=== PATIENT | female | born 1975 | race Caucasian/White ===

== ENCOUNTER → 2018-08-23 14:17 | Outpatient (CLI) | payer BC ==
[2013-09-03 16:06] VITALS: BMI 41.4
[~2018-08-23 14:17] MED LIST: AMBIEN10 MG PO; CELEXA10 MG PO; DEMEROL50 MG PO; IBUPROFEN400 MG PO; IBUPROFEN600 MG PO; MAXALT10 MG PO; MOTRIN600 MG PEG; PERCOCET 5-3251 TAB PO; ZOFRAN4 MG PO
--- NOTE | 2018-08-30 13:33 | EC ---
PATIENT:NITO STARR DATE OF SERVICE: 08/23/18 SEX: F MEDICAL RECORD: [id number] DATE OF : [birth year] LOCATION:[facility] AGE OF PATIENT: 43 ADMISSION DATE: 08/23/18 REFERRING PHYSICIAN: INTERPRETING PHYSICIAN: TERENCE SALDIVAR MD ECHOCARDIOGRAM REPORT ECHO CHARGES 4 ECHO COMPLETE Date: 08/23/18 CLINICAL DIAGNOSIS: HYPOTENSION/BRADYCARDIA/WALDRON/ ANGINA/MURMUR ECHOCARDIOGRAPHIC MEASUREMENTS (adult normal given) AC root (d.<3.7cm) 2.8 cm LV Septum d (<1.2 cm> 1.1 cm Valve Excursion 1.9 cm LV Septum (systole) 1.4 cm Left Atria (s.<4.0cm> 4.2 cm LVPW d(<1.2cm) 0.8 cm RV (d.<2.3cm) 2.9 cm LVPW (sytole) 1.6 cm LV diastole(<5.6CM) 5.2 cm MV E-F(>70mm/sec) cm LV systole 3.0 cm LVOT Diameter 1.9 cm MV exc.(>10mm) cm Est.ejection fraction (50-75%) % DOPPLER: LVIT cm/sec A 37.0 cm/sec E 86.0 cm/sec LA cm/sec RVSP 28.3 mmHg LVOT 113 cm/sec AOP1/2T m/s Asc. Ao 151 cm/sec RVOT 67.0 cm/sec RA cm/sec PA 101 cm/sec AV Gradient Peak 9.1 mmHg AV Mean 4.2 mmHg AV Area 2.0 cm MV Gradient Peak 3.9 mmHg MV Mean 1.0 mmHg MV Area cm COMMENTS: OP - HC Splitting Machine Operator Helper: 1 HAYLEY VENANCIO Industrial Services Worker: 3 Dr. Pimentel TAPE# PACS Pericardial Effusion N DATE OF SERVICE: Adequate 2D, color flow, spectral Doppler, and M-Mode. No LVH. LV internal dimension is normal. Wall motion is normal. EF is greater than or equal to 55%. Aortic valve is tricuspid. No evidence of stenosis by Doppler interrogation. Left atrium is minimally dilated at 4.2 cm. Mitral valve shows no prolapse. Trace MR. Right-sided chambers grossly normal. Trace TR. TRANSINT:[id number] Voice Confirmation ID: [id number] DOCUMENT ID: [id number] ECHOCARDIOGRAM REPORT [id number] NITO STARR,TERENCE Bernstein MD at 1333 CC: [id number] DICTATION DATE: 08/28/18 1303 LASER SPECIALIST: 08/28/18 1402 DEP CLI 08/23/18 [place] [id number] [place] [id number]
--- NOTE | 2018-09-06 10:38 | ST ---
PATIENT:NITO STARR MEDICAL RECORD: [id number] SEX: F LOCATION:[facility] ORDER #: ADMISSION DATE: 08/23/18 AGE OF PATIENT: 43 REFERRING PHYSICIAN: INTERPRETING PHYSICIAN: BRENDA BROOKS MD DATE OF SERVICE: 08/23/2018 TREADMILL STRESS TEST INDICATION: Chest discomfort. She exercised only 4 minutes 30 seconds, terminated due to overall fatigue and exercise inability. She had no significant chest discomfort. She had shortness of breath and fatigue. OVERALL IMPRESSION: Inadequate stress test due to inability to exercise. Repeat with Lexiscan and Cardiolite imaging. TRANSINT:[id number] Voice Confirmation ID: [id number] DOCUMENT ID: [id number] BRENDA BROOKS MD at 1038 CC: [id number] DICTATION DATE: 08/25/18 1235 DESIGN TECHNOLOGY TEACHER: 08/26/18 0625 DEP CLI 08/23/18 [place] [address] [place] [address]
== END | disposition home or self-care (01) ==
LOC: D.HCCARDIO 14:17
PROVIDERS: ATTEND Internal Medicine Interventional Cardiology
DX: R00.2 Palpitations (principal); R07.9 Chest pain, unspecified

== ENCOUNTER → 2018-09-07 09:56 | Outpatient (CLI) | payer BC ==
[2013-09-03 16:06] VITALS: BMI 41.4
--- NOTE | ~2018-09-07 | ST ---
PATIENT:NITO STARR MEDICAL RECORD: [id number] SEX: F LOCATION:[facility] ORDER #: ADMISSION DATE: 09/07/18 AGE OF PATIENT: 43 REFERRING PHYSICIAN: INTERPRETING PHYSICIAN: BRENDA BROOKS MD DATE OF SERVICE: 09/07/2018 PROCEDURE: Nuclear stress test. INDICATION: Chest pain. She was exercised on standard Lexiscan protocol with 27 mCi of sestamibi injected at peak stress, 8 mCi used previously for rest images. FINDINGS: Gated SPECT reveals preserved ejection fraction at 66% with good wall motion and thickening and brightening throughout all segments. SPECT imaging Cardiolite was used as myocardial fusion agent. There is homogeneous uptake throughout all segments at rest and stress with no evidence of inducible ischemia or previous infarction. OVERALL IMPRESSION: 1. This is a normal nuclear stress test with no evidence of inducible ischemia or previous infarction. 2. Gated SPECT reveals a preserved ejection fraction at 66%. In this patient with ongoing symptomatology, the current scan does not suggest the presence of hemodynamically significant coronary artery disease. Evaluate noncardiac etiology of chest pain. TRANSINT:[id number] Voice Confirmation ID: [id number] DOCUMENT ID: [id number] BRENDA BROOKS MD CC: [id number] DICTATION DATE: 09/07/18 1626 MACHINE PRESERVATIVE FILLER: 09/08/18 0707 DEP CLI 09/07/18 [facility] [address] [place] [address]
== END | disposition home or self-care (01) ==
LOC: D.HCCARDIO 09:56
PROVIDERS: ATTEND Internal Medicine Interventional Cardiology
DX: R07.9 Chest pain, unspecified (principal)

== ENCOUNTER → 2020-09-22 10:18 | Outpatient (CLI) | payer BC ==
[2013-09-03 16:06] VITALS: BMI 41.4
== END | disposition home or self-care (01) ==
LOC: D.NM 10:18
PROVIDERS: ATTEND Nurse Practitioner
DX: R93.7 Abnormal findings on diagnostic imaging of other parts of musculoskeletal system (principal)